=== PATIENT | male | born 1985 | race Caucasian/White ===

== ENCOUNTER 2017-01-07 14:55 | Emergency (ER) | payer SELFPAY ==
[2017-01-07 14:56] VITALS: BMI 24.0
== END 2017-01-07 14:56 | disposition left against medical advice (07) ==
LOC: ED 14:55
DX: Z02.89 Encounter for other administrative examinations (principal); R29.898 Other symptoms and signs involving the musculoskeletal system

== ENCOUNTER 2017-08-19 08:24 | Emergency (ER) | payer MEDICAID, OTHER ==
[2017-08-19 08:24] VITALS: BMI 24.0
[2017-08-19 08:39] VITALS: BP 118/68; PULSE 59; RESP 16; TEMP 98.4; O2SAT 98
--- NOTE | 2017-08-19 09:04 | ED PDOC ---
Arrival/HPI - General Chief Complaint: Back Pain Time Seen by Provider: 08/19/17 08:46 Historian: Patient - History of Present Illness Narrative History of Present Illness (Text): 08/19/17 09:05 32 year old male, with past medical history of chronic lower back pain, presents to the Emergency department complaining of exacerbation of lower back discomfort since prior to arrival. Patient informs sharp throbbing pain rated 8/ 10, radiating to legs bilaterally. Patient denies any recent fall or trauma. Patient denies any fever, chills, nausea, vomiting, diarrhea, abdominal pain, chest pain, shortness of breath or any other complaints. PMD: Dr. Mims Time/Duration: Prior to Arrival Symptom Onset: Gradual Symptom Course: Unchanged Quality: Throbbing Activities at Onset: Light Context: Home Past Medical History - Provider Review Nursing Documentation Reviewed: Yes - Past History Past History: No Previous - Infectious Disease Hx of Infectious Diseases: None - Tetanus Immunization Tetanus Immunization: Up to Date - Past Medical History Past Medical History: No Previous - Cardiac Hx Cardiac Disorders: No - Pulmonary Hx Respiratory Disorders: No - Neurological Hx Neurological Disorder: No - HEENT Hx HEENT Disorder: No - Renal Hx Renal Disorder: No - Endocrine/Metabolic Hx Endocrine Disorders: No - Hematological/Oncological Hx Blood Disorders: No - Integumentary Hx Dermatological Disorder: No - Musculoskeletal/Rheumatological Hx Back Pain: Yes Hx Falls: Yes - Gastrointestinal Hx Gastrointestinal Disorders: No - Genitourinary/Gynecological Hx Genitourinary Disorders: No - Psychiatric Hx Depression: No Hx Emotional Abuse: No Hx Physical Abuse: No Hx Substance Use: Yes - Past Surgical History Past Surgical History: No Previous - Surgical History Hx Appendectomy: Yes - Anesthesia Hx Anesthesia: Yes Hx Anesthesia Reactions: No Hx Malignant Hyperthermia: No - Suicidal Assessment Feels Threatened In Home Enviroment: No Family/Social History - Physician Review Nursing Documentation Reviewed: Yes Family/Social History: No Known Family HX Smoking Status: Current Some Days Smoker Hx Alcohol Use: Yes Frequency of alcohol use: Socially Hx Substance Use: Yes Substance used: Marijuana Hx Substance Use Treatment: No Allergies/Home Meds Allergies/Adverse Reactions: Allergies penicillin V Allergy (Verified 08/19/17 08:41) RASH Review of Systems - Physician Review All systems were reviewed & negative as marked: Yes - Review of Systems Constitutional: Normal. absent: Fevers Eyes: Normal ENT: Normal Respiratory: Normal. absent: SOB Cardiovascular: Normal. absent: Chest Pain Gastrointestinal: Normal. absent: Abdominal Pain, Diarrhea, Nausea, Vomiting Genitourinary Male: Normal Musculoskeletal: Back Pain (chronic lower back discomfort) Skin: Normal Neurological: Normal Endocrine: Normal Hemo/Lymphatic: Normal Psychiatric: Normal Physical Exam Vital Signs Reviewed: Yes Vital Signs Temp Pulse Resp BP Pulse Ox 08/19/17 08:38 98.4 F 59 L 16 118/68 98 Temperature: Afebrile Blood Pressure: Normal Pulse: Regular Respiratory Rate: Normal Appearance: Positive for: Well-Appearing, Non-Toxic, Comfortable Pain Distress: None Mental Status: Positive for: Alert and Oriented X 3 - Systems Exam Head: Present: Atraumatic, Normocephalic Pupils: Present: PERRL Extroacular Muscles: Present: EOMI Conjunctiva: Present: Normal Mouth: Present: Moist Mucous Membranes Neck: Present: Normal Range of Motion Respiratory/Chest: Present: Clear to Auscultation, Good Air Exchange. No: Respiratory Distress, Accessory Muscle Use Cardiovascular: Present: Regular Rate and Rhythm, Normal S1, S2. No: Murmurs Abdomen: Present: Normal Bowel Sounds. No: Tenderness, Distention, Peritoneal Signs Back: Present: Paraspinal Tenderness (paralumbar spinal tenderness) Upper Extremity: Present: Normal Inspection. No: Cyanosis, Edema Lower Extremity: Present: Normal Inspection. No: Edema Neurological: Present: GCS=15, CN II-XII Intact, Speech Normal Skin: Present: Warm, Dry, Normal Color. No: Rashes Psychiatric: Present: Alert, Oriented x 3, Normal Insight, Normal Concentration Medical Decision Making ED Course and Treatment: 08/19/17 09:08 Impression: 32 year old male presents to the Emergency department for chronic lower back discomfort. Plan: -- Toradol -- Reassess and disposition Progress Notes: 08/19/17 13:23 no trauma. h/.o of chronic pain on narcotics. treated wiht non narcoti . no saddle anesthesia neuro intact. steady gait. - Medication Orders Current Medication Orders: Discontinued Medications Ketorolac Tromethamine (Toradol) 30 mg IM STAT STA Stop: 08/19/17 08:51 Last Admin: 08/19/17 09:20 Dose: 30 mg MAR Pain Assessment Document 08/19/17 09:20 MR (Rec: 08/19/17 09:21 MR [id number]) Pain Reassessment Is this a pain reassessment? Yes Sleep Is patient sleeping during reassessment? No Presence of Pain Presence of Pain Yes Pain Scale Used Pain Scale Used Numeric Location Left, Right or Bilateral Bilateral Upper or Lower Lower Pain Location Body Site Back Description Description Throbbing Intensity of Pain at present 8 Aggravating Factors Changing Position Alleviating Factors/Management Medication Techniques IM Administration Charges Document 08/19/17 09:20 (Rec: 08/19/17 09:21 MR [id number]) Injection Site MAR Injection Site Left Deltoid Charges for Administration # of IM Administrations 1 - Scribe Statement The provider has reviewed the documentation as recorded by the Scribe Elba Juan. All medical record entries made by the Scribe were at my direction and personally dictated by me. I have reviewed the chart and agree that the record accurately reflects my personal performance of the history, physical exam, medical decision making, and the department course for this patient. I have also personally directed, reviewed, and agree with the discharge instructions and disposition. Disposition/Present on Arrival - Present on Arrival Any Indicators Present on Arrival: No History of DVT/PE: No History of Uncontrolled Diabetes: No Urinary Catheter: No History of Decub. Ulcer: No History Surgical Site Infection Following: None - Disposition Have Diagnosis and Disposition been Completed?: Yes Diagnosis: Chronic back pain Disposition: HOME/ ROUTINE Disposition Time: 09:00 Condition: STABLE Discharge Instructions (ExitCare): Chronic Back Pain (ED) Additional Instructions: follow up with your doctor/specialist return to er with worsening symptoms or concerns. Prescriptions: Cyclobenzaprine [Cyclobenzaprine HCl] 10 mg PO DAILY PRN #10 tab PRN Reason: Muscle Spasm Naproxen 500 mg PO BID PRN #14 tab PRN Reason: Pain, Mild (1-3) Referrals: Bunny Phillips MD [Staff Provider] - Follow up with primary Forms: [employer] (Slovak)
== END 2017-08-19 09:25 | disposition home or self-care (01) ==
LOC: ED 08:24
DX: M54.5 Low back pain (principal); G89.29 Other chronic pain
CPT/HCPCS: 96372; 99281; J1885

== ENCOUNTER 2018-02-19 12:49 | Emergency (ER) | payer OTHER ==
[2018-02-19 12:53] VITALS: RESP 18; O2SAT 100; BMI 23.3
--- NOTE | 2018-02-19 13:20 | ED PDOC ---
Arrival/HPI - General Chief Complaint: Lower Extremity Problem/Injury Time Seen by Provider: 02/19/18 13:17 Historian: Patient - History of Present Illness Narrative History of Present Illness (Text): 02/19/18 13:15 This 32 yo male presents to this ED c/o right medial ankle pain x [employer]. Patient stated he was trying to compact boxes, by jumping over them. He said he twisted ankle. He stated he went to [facility]. He said he was told "everything is fine", prescribed Naproxen, and isreal bandage applied. He stated he was not told if he had an ankle fracture or he just sprain it. Patient denies other somatic complains. 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 Time/Duration: Other (see hpi) Context: Work Past Medical History - Provider Review Nursing Documentation Reviewed: Yes - Past History Past History: No Previous - Infectious Disease Hx of Infectious Diseases: None - Tetanus Immunization Tetanus Immunization: Up to Date - Past Medical History Past Medical History: No Previous - Cardiac Hx Cardiac Disorders: No - Pulmonary Hx Respiratory Disorders: No - Neurological Hx Neurological Disorder: No - HEENT Hx HEENT Disorder: No - Renal Hx Renal Disorder: No - Endocrine/Metabolic Hx Endocrine Disorders: No - Hematological/Oncological Hx Blood Disorders: No - Integumentary Hx Dermatological Disorder: No - Musculoskeletal/Rheumatological Hx Back Pain: Yes Hx Falls: Yes - Gastrointestinal Hx Gastrointestinal Disorders: No - Genitourinary/Gynecological Hx Genitourinary Disorders: No - Psychiatric Hx Depression: No Hx Emotional Abuse: No Hx Physical Abuse: No Hx Substance Use: Yes - Past Surgical History Past Surgical History: No Previous - Surgical History Hx Appendectomy: Yes - Anesthesia Hx Anesthesia: Yes Hx Anesthesia Reactions: No Hx Malignant Hyperthermia: No - Suicidal Assessment Feels Threatened In Home Enviroment: No Family/Social History - Physician Review Nursing Documentation Reviewed: Yes Family/Social History: Other (noncontributory) Smoking Status: Current Some Days Smoker Hx Alcohol Use: Yes Hx Substance Use: Yes Substance used: Marijuana Hx Substance Use Treatment: No Allergies/Home Meds Allergies/Adverse Reactions: Allergies penicillin V Allergy (Verified 02/19/18 13:07) RASH Review of Systems - Review of Systems Constitutional: Normal. absent: Fatigue, Weight Change, Fevers, Night Sweats Eyes: Normal ENT: Normal Respiratory: Normal Cardiovascular: Normal Gastrointestinal: Normal Genitourinary Male: Normal Musculoskeletal: Other (ankle pain) Skin: Normal Neurological: Normal Endocrine: Normal Hemo/Lymphatic: Normal Psychiatric: Normal Physical Exam Vital Signs Temp Pulse Resp BP Pulse Ox 02/19/18 12:55 98.3 F 89 18 126/85 100 02/19/18 12:52 98.3 F 89 18 126/85 100 Temperature: Afebrile Blood Pressure: Normal Pulse: Regular Respiratory Rate: Normal Appearance: Positive for: Well-Appearing, Non-Toxic, Comfortable Pain Distress: None Mental Status: Positive for: Alert and Oriented X 3 - Systems Exam Head: Present: Atraumatic, Normocephalic Pupils: Present: PERRL Extroacular Muscles: Present: EOMI Conjunctiva: Present: Normal Mouth: Present: Moist Mucous Membranes Back: Present: Normal Inspection Upper Extremity: Present: Normal Inspection, Normal ROM, NORMAL PULSES. No: Cyanosis, Edema Lower Extremity: Present: NORMAL PULSES, Normal ROM, Tenderness (Mild medial malleoulus tenderness), Neurovascularly Intact, Capillary Refill < 2 s, Other ( Carballo test was negative. No posterior akle tenderness. No calf tenderness. no leg edema). No: Edema, CALF TENDERNESS, Claudia's Sign, Swelling, Erythema, Temperature Abnormalties Neurological: Present: GCS=15, CN II-XII Intact, Speech Normal, Motor Func Grossly Intact, Normal Sensory Function, Normal Cerebellar Funct, Gait Normal Skin: Present: Warm, Dry, Normal Color. No: Rashes Psychiatric: Present: Alert, Oriented x 3, Normal Insight, Normal Concentration Medical Decision Making ED Course and Treatment: 02/19/18 13:[address] Kaur, ED attending at [facility] ED in [facility]. She stated that ankle x-rays was negative for fracture, and patient was prescribed Naproxen for pain PRN. 02/19/18 13:28 Patient refused ankle x-rays since he just had one done. No proximal fibula tenderness. Denies knee pain, denies hip pain, denies back pain, denies BARRZAA, denies neck pain. 02/19/18 13:29 I recommended air cast splint, crutches 02/19/18 14:08 Patient is requesting prescription for Percocet 5mg tab. I told patient I do not prescribed opiods for sprain ankle. Re-evaluation. Patient feels better. Discussed results and plan with patient who expresses understanding. All questions answered and there is agreement with the plan to discharge home with instructions. Patient stable for discharge. Return if symptoms persist or worsen. Re-evaluation Time: 13:29 Reassessment Condition: Re-examined, Improved Disposition/Present on Arrival - Present on Arrival Any Indicators Present on Arrival: No History of DVT/PE: No History of Uncontrolled Diabetes: No Urinary Catheter: No History of Decub. Ulcer: No History Surgical Site Infection Following: None - Disposition Have Diagnosis and Disposition been Completed?: Yes Diagnosis: Ankle pain, Drug-seeking behavior Disposition: HOME/ ROUTINE Disposition Time: 14:10 Patient Plan: Discharge Patient Problems: Current Active Problems Problem Status Onset Ankle pain Acute Condition: GOOD Discharge Instructions (ExitCare): Ankle Sprain Additional Instructions: Call private doctor for follow up visit in 1-2 days. Call workers [employer] for further instruction to where you are supposed to follow up. Keep ankle elevated , ice , rest, crutches. Remove isreal bandage and air cast at bedtime. Return to emergency if pain worsen. Continue with Naproxen for pain as needed. Referrals: Chase Mims JD, MD [Family Provider] - Follow up with primary Forms: [employer] (South Korean), WORK NOTE
[2018-02-19 14:38] VITALS: BP 124/80; PULSE 68; TEMP 98
== END 2018-02-19 14:31 | disposition home or self-care (01) ==
LOC: ED 12:49
DX: M25.571 Pain in right ankle and joints of right foot (principal); Z76.5 Malingerer [conscious simulation]

== ENCOUNTER 2018-07-28 19:41 | Emergency (ER) | payer OTHER ==
[2018-07-28 19:41] VITALS: BMI 23.3
[2018-07-28 19:55] VITALS: RESP 16; TEMP 98.3
--- NOTE | 2018-07-28 20:19 | ED PDOC ---
Arrival/HPI - General Chief Complaint: Back Pain Time Seen by Provider: 07/28/18 19:47 Historian: Patient - History of Present Illness Narrative History of Present Illness (Text): 07/28/18 20:27 33 year old male, whose past medical history includes chronic lower back pain (status post injury 4 years prior), presents to the Emergency department complaining of exacerbation of lower back discomfort since 13:00 today. Patient informs sharp throbbing pain, radiating to legs bilaterally. Patient informs being treated at [facility] ER at 09:00 today, and was given an unknown pain relieving shot. Patient informs pain was relieved until 13:00. Patient denies any recent fall or trauma. Patient denies any fever, chills, nausea, vomiting, diarrhea, abdominal pain, chest pain, shortness of breath or any other complaints. PMD: Dr Hari Mims Time/Duration: 4-6 hours Symptom Onset: Gradual Symptom Course: Unchanged Quality: Stabbing Activities at Onset: Light Context: Home Past Medical History - Provider Review Nursing Documentation Reviewed: Yes - Past History Past History: No Previous - Infectious Disease Hx of Infectious Diseases: None - Tetanus Immunization Tetanus Immunization: Up to Date - Past Medical History Past Medical History: No Previous - Cardiac Hx Cardiac Disorders: No - Pulmonary Hx Respiratory Disorders: No - Neurological Hx Neurological Disorder: No - HEENT Hx HEENT Disorder: No - Renal Hx Renal Disorder: No - Endocrine/Metabolic Hx Endocrine Disorders: No - Hematological/Oncological Hx Blood Disorders: No - Integumentary Hx Dermatological Disorder: No - Musculoskeletal/Rheumatological Hx Back Pain: Yes Hx Falls: Yes - Gastrointestinal Hx Gastrointestinal Disorders: No - Genitourinary/Gynecological Hx Genitourinary Disorders: No - Psychiatric Hx Depression: No Hx Emotional Abuse: No Hx Physical Abuse: No Hx Substance Use: Yes - Past Surgical History Past Surgical History: No Previous - Surgical History Hx Appendectomy: Yes - Anesthesia Hx Anesthesia: Yes Hx Anesthesia Reactions: No Hx Malignant Hyperthermia: No - Suicidal Assessment Feels Threatened In Home Enviroment: No Family/Social History - Physician Review Nursing Documentation Reviewed: Yes Family/Social History: No Known Family HX Smoking Status: Current Some Days Smoker Hx Alcohol Use: Yes Hx Substance Use: Yes Substance used: Marijuana Hx Substance Use Treatment: No Allergies/Home Meds Allergies/Adverse Reactions: Allergies penicillin V Allergy (Verified 07/28/18 19:48) RASH Review of Systems - Physician Review All systems were reviewed & negative as marked: Yes - Review of Systems Constitutional: absent: Fevers Gastrointestinal: absent: Abdominal Pain Physical Exam Vital Signs Reviewed: Yes Vital Signs Temp Pulse Resp BP Pulse Ox 07/28/18 19:53 98.3 F 61 16 120/68 98 Temperature: Afebrile Blood Pressure: Normal Pulse: Regular Respiratory Rate: Normal Appearance: Positive for: Well-Appearing, Non-Toxic, Comfortable Pain Distress: None Mental Status: Positive for: Alert and Oriented X 3 - Systems Exam Head: Present: Atraumatic, Normocephalic Pupils: Present: PERRL Extroacular Muscles: Present: EOMI Conjunctiva: Present: Normal Mouth: Present: Moist Mucous Membranes Neck: Present: Normal Range of Motion Respiratory/Chest: Present: Clear to Auscultation, Good Air Exchange. No: Respiratory Distress, Accessory Muscle Use Cardiovascular: Present: Regular Rate and Rhythm, Normal S1, S2. No: Murmurs Abdomen: No: Tenderness, Distention, Peritoneal Signs Back: Present: Normal Inspection. No: Midline Tenderness Upper Extremity: Present: Normal Inspection. No: Cyanosis, Edema Lower Extremity: Present: Normal Inspection. No: Edema Neurological: Present: GCS=15, CN II-XII Intact, Speech Normal Skin: Present: Warm, Dry, Normal Color. No: Rashes Psychiatric: Present: Alert, Oriented x 3, Normal Insight, Normal Concentration Medical Decision Making ED Course and Treatment: 07/28/18 20:33 Impression: 33 year old male presents with back pain Plan: -- Toradol -- Reassess and disposition Prior Visits: Notes and results from previous visits were reviewed. Progress Notes: - Scribe Statement The provider has reviewed the documentation as recorded by the Livier Zuluaga Provider Scribe Attestation: All medical record entries made by the Sriniibyamilet were at my direction and personally dictated by me. I have reviewed the chart and agree that the record accurately reflects my personal performance of the history, physical exam, medical decision making, and the department course for this patient. I have also personally directed, reviewed, and agree with the discharge instructions and disposition. Disposition/Present on Arrival - Present on Arrival Any Indicators Present on Arrival: No History of DVT/PE: No History of Uncontrolled Diabetes: No Urinary Catheter: No History of Decub. Ulcer: No History Surgical Site Infection Following: None - Disposition Have Diagnosis and Disposition been Completed?: Yes Diagnosis: Back pain Disposition: HOME/ ROUTINE Disposition Time: 20:18 Patient Plan: Discharge Condition: STABLE Discharge Instructions (ExitCare): Low Back Pain (DC) Prescriptions: Cyclobenzaprine [Cyclobenzaprine HCl] 1 tab PO Q8H #12 tab Referrals: Chase Mims JD, MD [Family Provider] - Follow up with primary Forms: [employer] (Serbian)
[2018-07-28 21:52] VITALS: BP 122/70; PULSE 65; O2SAT 99
== END 2018-07-28 20:40 | disposition home or self-care (01) ==
LOC: ED 19:41
DX: M54.5 Low back pain (principal)
CPT/HCPCS: 96372; 99284; J1885